=== PATIENT | female | born 1990 | race Caucasian/White ===

== ENCOUNTER 2017-06-09 08:39 | Emergency (ER) | payer OTHER | END 2017-06-09 10:13 | disposition home or self-care (01) | LOC: FTE 08:39 | DX: H57.8 Other specified disorders of eye and adnexa (principal) | CPT/HCPCS: 99283; Z7502 ==

== ENCOUNTER 2017-07-16 08:52 | Emergency (ER) | payer OTHER | END 2017-07-16 10:41 | disposition home or self-care (01) | LOC: FTE 08:52 | DX: R21 Rash and other nonspecific skin eruption (principal) | CPT/HCPCS: 99283; Z7502 ==

== ENCOUNTER 2017-11-10 18:34 | Emergency (ER) | payer OTHER | END 2017-11-10 20:39 | disposition home or self-care (01) | LOC: FTE 20:39 | DX: L03.116 Cellulitis of left lower limb (principal) | CPT/HCPCS: 99284; Z7502 ==